=== PATIENT | male | born 1965 | race Caucasian/White ===

== ENCOUNTER 2020-04-19 15:57 | Emergency (ER) | payer BC ==
[2020-04-19] MEDS ORDERED: Ondansetron PF 4 MG/2 ML Vial ONE (16:19)
[2020-04-19] MEDS ORDERED: Morphine 4 MG/ML VIAL ONE (16:19)
[2020-04-19] MEDS ORDERED: Ketorolac Tromethamine 30 MG/ML VIAL ONE (16:19)
--- NOTE | 2020-04-19 17:04 | CT ---
EXAM: CT of the lumbar spine without contrast HISTORY: Low back pain after a 2 to 3 ft. fall COMPARISON: None TECHNIQUE: Multiple contiguous axial images were obtained in a CT of the lumbar spine without contras t. Sagittal and coronal reformats were performed. FINDINGS: The vertebral bodies and intervertebral discs demonstrate normal height and alignment witho ut fracture or subluxation. There is a right L1 transverse process fracture. Mild diffuse degenerative changes are present. The patient is status post cholecystectomy. Atherosclerotic calcifications are seen in the aorta.. The other visualized prevertebral and paraspinal soft tissues are unremarkable. IMPRESSION: Right L1 transverse process
== END 2020-04-19 17:27 | disposition home or self-care (01) ==
LOC: NAV ERS 15:57
DX: S32.018A Other fracture of first lumbar vertebra, initial encounter for closed fracture (principal); W10.9XXA Fall (on) (from) unspecified stairs and steps, initial encounter
CPT/HCPCS: 72131; 96374; 96375; J1885; J2270; J2405